=== PATIENT | female | born 2000 | race Two or more races ===

== ENCOUNTER 2020-12-14 02:30 | Emergency (ER) | payer MEDICAID, SELFPAY ==
[2020-12-14 02:49] VITALS: BP 147/90; PULSE 123; RESP 16; TEMP 37.3; O2SAT 100; BMI 20.7
--- NOTE | 2020-12-14 03:03 | PC.NURSE ---
PT TO ROOM #13 WITH C/O CUT TO RIGHT WRIST. NO ACTIVE BLEEDING AT THIS TIME. PT RAMBLING IN ROOM AND THREATENING TO THROW A FIT IF THE DOCTOR DOES NOT COME INTO ROOM NOW. G NURSE AWARE OF PT. PT STATES I DRANK A LOT OF ETOH TODAY D/T TAKING AWAY MY SON . PT AWAITING FOR MD'S EVAL.
--- NOTE | 2020-12-14 03:20 | PC.NURSE ---
PT IS TOLD SEVERAL TIMES TO STAY IN ROOM. PT TALKING ON PHONE, YELLING AND CURSING LOUDLY. PT TOLD TO STOP SWEARING.
== END 2020-12-14 03:58 | disposition left against medical advice (07) ==
PROVIDERS: Emergency Provider Emergency Medicine
DX: S61.511A Laceration without foreign body of right wrist, initial encounter (principal); W26.8XXA Contact with other sharp object(s), not elsewhere classified, initial encounter; Y93.89 Activity, other specified; Y92.019 Unspecified place in single-family (private) house as the place of occurrence of the external cause; Y99.9 Unspecified external cause status
CPT/HCPCS: 99281; 99282